=== PATIENT | female | born 1995 | race Caucasian/White ===

== ENCOUNTER 2019-05-02 02:44 | Emergency (ER) | payer SELFPAY ==
[~2019-05-02] VITALS: Ht 152.4 cm; Wt 59.0 kg
[2019-05-02 02:50] VITALS: BP 110/80
== END 2019-05-02 06:40 | disposition left against medical advice (07) ==
LOC: ER 02:44
DX: F41.1 Generalized anxiety disorder (principal)
CPT/HCPCS: 81025; 99284